=== PATIENT | male | born 1935 | race Hispanic/Latino ===

== ENCOUNTER 2016-12-22 08:07 | Day surgery (SDC) | payer MEDICARE, BC ==
[2016-12-15 11:56] VITALS: BMI 23.6
[2016-12-22] MEDS ORDERED: Propofol 10 mg/ml Inj (20 ML) ONE (11:11)
[2016-12-22] MEDS ORDERED: Sodium Chloride 0.9% 1,000 ML IV SCH (11:30)
[2016-12-22 12:35] VITALS: BP 143/59; PULSE 48; RESP 16; TEMP 97.5; O2SAT 98
== END 2016-12-22 12:56 | disposition home or self-care (01) ==
LOC: ENDO 08:07
PROVIDERS: ATTEND Internal Medicine Gastroenterology
DX: K90.0 Celiac disease (principal); K26.9 Duodenal ulcer, unspecified as acute or chronic, without hemorrhage or perforation; K21.0 Gastro-esophageal reflux disease with esophagitis; K29.50 Unspecified chronic gastritis without bleeding; K44.9 Diaphragmatic hernia without obstruction or gangrene; R63.4 Abnormal weight loss; Z68.23 Body mass index [BMI] 23.0-23.9, adult

== ENCOUNTER 2017-04-13 08:11 | Day surgery (SDC) | payer MEDICARE, BC ==
[2016-12-15 11:56] VITALS: BMI 23.6
[2017-04-13] MEDS ORDERED: Propofol 10 mg/ml Inj (20 ML) ONE ×2 (10:19→10:40)
[2017-04-13] MEDS ORDERED: Sodium Chloride 0.9% 1,000 ML IV SCH (11:00)
[2017-04-13 12:31] VITALS: BP 166/70; PULSE 43; RESP 16; TEMP 97.7; O2SAT 98
== END 2017-04-13 12:25 | disposition home or self-care (01) ==
LOC: ENDO 08:11
PROVIDERS: ATTEND Internal Medicine Gastroenterology
DX: K57.30 Diverticulosis of large intestine without perforation or abscess without bleeding (principal); K64.8 Other hemorrhoids
CPT/HCPCS: 45380; 88305; 88342; J2704; J7040 ×2

== ENCOUNTER 2017-06-05 09:35 | Day surgery (SDC) | payer MEDICARE, BC ==
[2016-12-15 11:56] VITALS: BMI 23.6
[2017-06-05] MEDS ORDERED: Propofol 10 mg/ml Inj (20 ML) ONE (10:55)
[2017-06-05] MEDS ORDERED: Sodium Chloride 0.9% 1,000 ML IV SCH (11:00)
[2017-06-05 13:49] VITALS: BP 144/61; PULSE 40; RESP 15; TEMP 98; O2SAT 97
== END 2017-06-05 14:05 | disposition home or self-care (01) ==
LOC: ENDO 09:35
PROVIDERS: ATTEND Internal Medicine Gastroenterology
DX: K31.7 Polyp of stomach and duodenum (principal); K22.2 Esophageal obstruction; K22.70 Barrett's esophagus without dysplasia; K29.50 Unspecified chronic gastritis without bleeding; K90.0 Celiac disease; I10 Essential (primary) hypertension; R13.10 Dysphagia, unspecified; Z86.73 Personal history of transient ischemic attack (TIA), and cerebral infarction without residual deficits
CPT/HCPCS: 43239; 88305; 88312; 88342; J2001; J2704; J7040 ×2

== ENCOUNTER 2018-01-26 09:16 | Emergency (ER) | payer MEDICARE, BC ==
[2018-01-26 09:17] VITALS: BMI 23.6
[2018-01-26 09:29] VITALS: RESP 18
--- NOTE | 2018-01-26 09:58 | ED PDOC ---
Arrival/HPI - General Historian: Patient - History of Present Illness Narrative History of Present Illness (Text): 01/26/18 09:55 Patient is a 82 year old male with past medical history of Hypertension, CAD s/p stent, hyperlipidemia who presented to the emergency department for elevated blood pressure. Patient states that he just recently got a BP machine at home. He took his medication this morning and took his blood pressure approximately 10 minutes later. His SBP reading was 209 at that time. He called his PMD who recommended coming to the ED for evaluation. Patient offers no other complaints at this time. He denies headaches, dizziness, cp, palpitations, sob, abdominal pain, urinary symptoms. Time/Duration: Prior to Arrival Symptom Onset: Sudden Symptom Course: Unchanged <Ysesi Parks - Last Filed: 01/26/18 10:22> <Arik Galaviz - Last Filed: 01/26/18 11:15> - General Chief Complaint: High Blood Pressure Time Seen by Provider: 01/26/18 09:40 Past Medical History - Provider Review Nursing Documentation Reviewed: Yes - Infectious Disease Hx of Infectious Diseases: None - Tetanus Immunization Tetanus Immunization: Unknown - Cardiac Hx Hypertension: Yes Hx Pacemaker: No - Neurological Hx Paralysis: No - Hematological/Oncological Hx Blood Transfusions: No - Musculoskeletal/Rheumatological Hx Musculoskeletal Disorders: No - Psychiatric Hx Emotional Abuse: No Hx Physical Abuse: No Hx Substance Use: No - Surgical History Hx Cardiac Catheterization: Yes (with stents) - Anesthesia Hx Anesthesia: Yes Hx Anesthesia Reactions: No Hx Malignant Hyperthermia: No - Suicidal Assessment Feels Threatened In Home Enviroment: No <Yessi Parks - Last Filed: 01/26/18 10:22> Family/Social History - Physician Review Nursing Documentation Reviewed: Yes Smoking Status: Never Smoked Hx Alcohol Use: Yes (BEER OCCASIONALLY) Hx Substance Use: No <Yessi Parks - Last Filed: 01/26/18 10:22> Family/Social History: No Known Family HX <Arik Galaviz - Last Filed: 01/26/18 11:15> Allergies/Home Meds <Yessi Parks - Last Filed: 01/26/18 10:22> <Arik Galaviz - Last Filed: 01/26/18 11:15> Allergies/Adverse Reactions: Allergies No Known Allergies Allergy (Verified 03/20/16 11:09) Home Medications: Home Meds Medication Instructions Recorded Confirmed RX: Metoprolol Succinate 25 mg PO DAILY 08/23/11 01/26/18 Ferrous Gluconate [Fergon] 270 mg PO DAILY 12/15/16 01/26/18 Folic Acid 1 mg PO BID 12/15/16 01/26/18 Tamsulosin [Flomax] 0.4 mg PO DAILY 12/15/16 01/26/18 RX: Omeprazole 20 mg PO DAILY 12/22/16 01/26/18 Aspirin [Ecotrin] 81 mg PO DAILY 03/07/17 01/26/18 Multivit-Minerals/FA/Lycopene [One 1 tab PO DAILY 03/07/17 01/26/18 Daily For Men Tablet] RX: Atorvastatin [Lipitor] 20 mg PO QOTHERDAY 03/07/17 01/26/18 RX: Docusate Sodium [Stool 100 mg PO DAILY 03/07/17 01/26/18 Softener] RX: Losartan Potassium [Cozaar] 100 mg PO DAILY 03/07/17 01/26/18 Review of Systems - Physician Review All systems were reviewed & negative as marked: Yes - Review of Systems Constitutional: Normal. absent: Fatigue Eyes: Normal. absent: Vision Changes Respiratory: Normal. absent: SOB, Cough Cardiovascular: Normal. absent: Chest Pain, Palpitations, Edema Gastrointestinal: Normal. absent: Abdominal Pain, Constipation, Diarrhea, Nausea, Vomiting Genitourinary Male: Normal. absent: Dysuria, Frequency, Hematuria Musculoskeletal: Normal. absent: Back Pain, Neck Pain Skin: Normal Neurological: Normal. absent: Headache, Dizziness, Focal Weakness <Yessi Parks - Last Filed: 01/26/18 10:22> Physical Exam Vital Signs Reviewed: Yes Vital Signs Temp Pulse Resp BP Pulse Ox 01/26/18 09:33 98.4 F 56 L 18 162/80 H 98 01/26/18 09:17 98.4 F 56 L 18 162/80 H 98 Temperature: Afebrile Blood Pressure: Hypertensive Pulse: Bradycardic Respiratory Rate: Normal Appearance: Positive for: Well-Appearing, Non-Toxic, Comfortable Pain Distress: None Mental Status: Positive for: Alert and Oriented X 3 - Systems Exam Head: Present: Atraumatic, Normocephalic Pupils: Present: PERRL Extroacular Muscles: Present: EOMI Conjunctiva: Present: Normal Mouth: Present: Moist Mucous Membranes Nose (Internal): Present: Normal Inspection Neck: Present: Normal Range of Motion Respiratory/Chest: Present: Clear to Auscultation, Good Air Exchange. No: Respiratory Distress, Accessory Muscle Use Cardiovascular: Present: Regular Rate and Rhythm, Murmurs, Normal S1, S2 Abdomen: Present: Distention (mildly distended), Normal Bowel Sounds. No: Tenderness, Peritoneal Signs, Rebound, Guarding Back: Present: Normal Inspection. No: CVA Tenderness Upper Extremity: Present: Normal Inspection Lower Extremity: Present: Normal Inspection Neurological: Present: CN II-XII Intact Skin: Present: Warm, Dry, Normal Color Psychiatric: Present: Alert, Oriented x 3 <Yessi Parks - Last Filed: 01/26/18 10:22> Vital Signs Temp Pulse Resp BP Pulse Ox 01/26/18 10:29 98.2 F 52 L 18 174/84 H 96 01/26/18 09:33 98.4 F 56 L 18 162/80 H 98 01/26/18 09:17 98.4 F 56 L 18 162/80 H 98 <Arik Galaviz - Last Filed: 01/26/18 11:15> Medical Decision Making ED Course and Treatment: 01/26/18 10:01 Patient seen and examined at bedside. Patient is asymptomatic, offering no complaints at this time. 01/26/18 10:28 Patient to be discharged home. Instructed to follow up with PMD within 2-3 days. <Yessi Parks - Last Filed: 01/26/18 10:22> ED Course and Treatment: 01/26/18 10:05 Seen and examined with resident. 82 year old male presents with elevated blood pressure, spontaneously improving. On exam, no distress. <Arik Galaviz - Last Filed: 01/26/18 11:15> - PA / HAM BONER / Resident Statement MD/DO has reviewed & agrees with the documentation as recorded. MD/DO has examined the patient and agrees with the treatment plan. - Scribe Statement The provider has reviewed the documentation as recorded by the Charleneibheidi Mason All medical record entries made by the Scribe were at my direction and personally dictated by me. I have reviewed the chart and agree that the record accurately reflects my personal performance of the history, physical exam, medical decision making, and the department course for this patient. I have also personally directed, reviewed, and agree with the discharge instructions and disposition. <Arik Galaviz - Last Filed: 01/26/18 11:15> Disposition/Present on Arrival - Present on Arrival Any Indicators Present on Arrival: No History of DVT/PE: No History of Uncontrolled Diabetes: No Urinary Catheter: No History of Decub. Ulcer: No History Surgical Site Infection Following: CABG - Mediastinitis, None - Disposition Have Diagnosis and Disposition been Completed?: Yes Disposition Time: 10:19 Patient Plan: Discharge <CharlyYessi - Last Filed: 01/26/18 10:22> <Arik Galaviz - Last Filed: 01/26/18 11:15> - Disposition Diagnosis: Hypertension Disposition: HOME/ ROUTINE Condition: GOOD Discharge Instructions (ExitCare): High Blood Pressure in Adults, High Blood Pr essure (DC), Low Salt Diet, High Blood Pressure Emergencies Additional Instructions: - Please follow up with PMD within 2-3 days for BP check and follow up - If any worsening of symptoms, return to the emergency department Referrals: Kirill Joshua MD [Family Provider] - Follow up with primary Forms: [employer] (Icelandic)
[2018-01-26 10:33] VITALS: BP 174/84; PULSE 52; O2SAT 96
[2018-01-26 10:34] VITALS: TEMP 98.2
== END 2018-01-26 10:34 | disposition home or self-care (01) ==
LOC: ED 09:16
DX: I10 Essential (primary) hypertension (principal); I25.10 Atherosclerotic heart disease of native coronary artery without angina pectoris; Z95.5 Presence of coronary angioplasty implant and graft

== ENCOUNTER 2018-04-15 04:32 | Inpatient (IN) | payer MEDICARE, BC ==
--- NOTE | 2018-04-15 04:58 | ED PDOC ---
Arrival/HPI - General Chief Complaint: Weakness/Neurological Deficit Time Seen by Provider: 04/15/18 04:51 Historian: Patient, Spouse - History of Present Illness Narrative History of Present Illness (Text): 04/15/18 04:57 Navdeep Sadler is an 82 year old male, whose past medical history includes CAD with cardiac stents, hypertension, hyperlipidemia, and Celiac's disease, who presents to the Emergency department accompanied by complaining of paresthesias. Patient states while driving at 14:30 yesterday he started experiencing paresthesias to his right arm and right leg. Patient denies any numbness, headache, dizziness, vision changes, chest pain, shortness of breath, nausea, vomiting, back pain, neck pain, or any other complaints. Symptom Onset: Gradual Symptom Course: Unchanged Activities at Onset: Light Context: Home Past Medical History - Provider Review Nursing Documentation Reviewed: Yes - Infectious Disease Hx of Infectious Diseases: None - Tetanus Immunization Tetanus Immunization: Unknown - Cardiac Hx Hypertension: Yes Hx Pacemaker: No - Neurological Hx Paralysis: No - Hematological/Oncological Hx Blood Transfusions: No - Musculoskeletal/Rheumatological Hx Musculoskeletal Disorders: No - Psychiatric Hx Emotional Abuse: No Hx Physical Abuse: No Hx Substance Use: No - Surgical History Hx Cardiac Catheterization: Yes (with stents) - Anesthesia Hx Anesthesia: Yes Hx Anesthesia Reactions: No Hx Malignant Hyperthermia: No - Suicidal Assessment Feels Threatened In Home Enviroment: No Family/Social History - Physician Review Nursing Documentation Reviewed: Yes Family/Social History: Unknown Family HX Smoking Status: Never Smoked Hx Alcohol Use: Yes (BEER OCCASIONALLY) Hx Substance Use: No Allergies/Home Meds Allergies/Adverse Reactions: Allergies No Known Allergies Allergy (Verified 04/15/18 04:39) Home Medications: Home Meds Medication Instructions Recorded Confirmed Metoprolol Succinate 50 mg PO DAILY 08/23/11 04/15/18 Ferrous Gluconate [Fergon] 270 mg PO DAILY 12/15/16 04/15/18 Folic Acid 1 mg PO BID 12/15/16 04/15/18 Tamsulosin [Flomax] 0.4 mg PO DAILY 12/15/16 04/15/18 Omeprazole 20 mg PO DAILY 12/22/16 04/15/18 Aspirin [Ecotrin] 81 mg PO DAILY 03/07/17 04/15/18 Atorvastatin [Lipitor] 20 mg PO QOTHERDAY 03/07/17 04/15/18 Docusate Sodium [Stool Softener] 100 mg PO DAILY 03/07/17 04/15/18 Losartan Potassium [Cozaar] 100 mg PO DAILY 03/07/17 04/15/18 Multivit-Minerals/FA/Lycopene [One 1 tab PO DAILY 03/07/17 04/15/18 Daily For Men Tablet] amLODIPine [Norvasc] 10 mg PO DAILY 04/15/18 04/15/18 Review of Systems - Physician Review All systems were reviewed & negative as marked: Yes - Review of Systems Constitutional: Normal. absent: Fevers Eyes: Normal ENT: Normal Respiratory: Normal. absent: SOB, Cough Cardiovascular: Normal. absent: Chest Pain Gastrointestinal: Normal. absent: Abdominal Pain, Diarrhea, Nausea, Vomiting Genitourinary Male: Normal Musculoskeletal: Normal Skin: Normal Neurological: Normal Endocrine: Normal Hemo/Lymphatic: Normal Psychiatric: Normal Physical Exam Vital Signs Reviewed: Yes Vital Signs Temp Pulse Resp BP Pulse Ox 04/15/18 04:50 97.6 F 04/15/18 04:47 53 L 18 145/77 97 Temperature: Afebrile Blood Pressure: Normal Pulse: Regular Respiratory Rate: Normal Appearance: Positive for: Well-Appearing, Non-Toxic, Comfortable Pain Distress: None Mental Status: Positive for: Alert and Oriented X 3 Finger Stick Blood Glucose: 142 - Systems Exam Head: Present: Atraumatic, Normocephalic Pupils: Present: PERRL Extroacular Muscles: Present: EOMI Conjunctiva: Present: Normal Mouth: Present: Moist Mucous Membranes Neck: Present: Normal Range of Motion Respiratory/Chest: Present: Clear to Auscultation, Good Air Exchange. No: Respiratory Distress, Accessory Muscle Use Cardiovascular: Present: Regular Rate and Rhythm, Normal S1, S2. No: Murmurs Abdomen: No: Tenderness, Distention, Peritoneal Signs Back: Present: Normal Inspection Upper Extremity: Present: Normal Inspection, Normal ROM, NORMAL PULSES, Neurovascularly Intact, Capillary Refill < 2s. No: Cyanosis, Edema, Tenderness, Swelling, Erythema, Temperature Abnormalties, Deformity Lower Extremity: Present: Normal Inspection. No: Edema Neurological: Present: GCS=15, CN II-XII Intact, Speech Normal, Motor Func Grossly Intact, Normal Sensory Function, Normal Cerebellar Funct, Memory Normal Skin: Present: Warm, Dry, Normal Color. No: Rashes Psychiatric: Present: Alert, Oriented x 3, Normal Insight, Normal Concentration Medical Decision Making ED Course and Treatment: 04/15/18 04:57 Impression: 82 year old male complaining of right arm and right leg paresthesias since 14:30 yesterday. Plan: -- CT Head w/o contrast -- EKG -- Chest X-ray -- Labs, lipid panel, troponin -- Reassess and disposition Progress Notes: Reviewed EKG, sinus bradycardia at 52 bpm. Occasional PAC. Septal infarct. No acute changes. 04/15/18 06:00 Reviewed Chest X-ray, shows no acute processes. 04/15/18 06:32 Case was discussed with .Accepts to his service/ on consult. - EKG Interpretation Interpreted by ED Physician: Yes Type: 12 lead EKG NIHSS Scale (Olden) Time Performed: 05:00 - How Severe is the Stoke Baseline Level of Consciousness: 0=Alert LOC to Questions: 0=Both comments correct LOC to commands: 0=Obeys both correctly Best Gaze: 0=Normal Visual: 0=No visual loss Facial: 0=Normal Motor Arm - Left: 0=No drift Motor Arm - Right: 0=No drift Motor Leg - Left: 0=No drift Motor Leg - Right: 0=No drift Limb Ataxia: 0=Absent Sensory: 0=Normal Best Language: 0=No aphasia Dysarthia: 0=Normal articulation Extinction & Inattention (Neglect): 0=Normal, no object Score: 0 Risk Level: No Stroke Risk - Scribe Statement The provider has reviewed the documentation as recorded by the Sandy Gibson Provider Scribe Attestation: All medical record entries made by the Charleneibheidi were at my direction and personally dictated by me. I have reviewed the chart and agree that the record accurately reflects my personal performance of the history, physical exam, medical decision making, and the department course for this patient. I have also personally directed, reviewed, and agree with the discharge instructions and disposition. Disposition/Present on Arrival - Present on Arrival Any Indicators Present on Arrival: No History of DVT/PE: No History of Uncontrolled Diabetes: No Urinary Catheter: No History of Decub. Ulcer: No History Surgical Site Infection Following: CABG - Mediastinitis, None - Disposition Have Diagnosis and Disposition been Completed?: Yes Diagnosis: Paresthesias/numbness Disposition: HOSPITALIZED Disposition Time: 06:32 Patient Plan: Observation Condition: STABLE Forms: [employer] (Mongolian)
[2018-04-15 05:33] LABS: BASO # 0.01 K/mm3 (0.0-2.0); BASO % 0.1 % (0.0-3.0); EOS # 0.1 (0.0-0.7); EOS % 0.9 % (1.5-5.0); HEMOGLOBIN 15.2 g/dL (14.0-18.0); LYMPH # 2.7 (1.2-3.4); MEAN CELL VOLUME 87.9 fl (80.0-105.0); MEAN CORPUSCULAR HEMOGLOBIN 28.8 pg (25.0-35.0); MEAN CORPUSCULAR HGB CONC 32.8 g/dl (31.0-37.0); MEAN PLATELET VOLUME 10.4 fl (7.0-11.0); MONO # 0.7 (0.1-0.6); MONO % 7.7 % (1.0-6.0); RBC 5.28 10^6/uL (3.5-6.1); RED CELL DISTRIBUTION WIDTH 14.2 % (11.5-14.5); WHITE BLOOD COUNT 8.6 10^3/uL (4.5-11.0)
[2018-04-15 05:51] LABS: ALB/GLOB RATIO 1.4 (1.1-1.8); ALBUMIN 3.8 g/dL (3.0-4.8); ALT/SGPT 17 U/L (7-56); AST/SGOT 31 U/L (17-59); BLOOD UREA NITROGEN 26 mg/dL (7-21); CALCIUM 8.9 mg/dL (8.4-10.5); GFR NON-AFRICAN AMERICAN 53; HDL CHOLESTEROL 32 mg/dL (29-60); INR 0.99; PARTIAL THROMBOPLASTIN TIME 29.6 Seconds (26.9-38.3); PROTHROMBIN TIME 11.2 SECONDS (9.4-12.5)
[2018-04-15 06:02] LABS: LDL CHOLESTEROL 74 mg/dL (0-129); TROPONIN I < 0.01 ng/mL
--- NOTE | 2018-04-15 09:14 | CT ---
Date of service: 04/15/2018 PROCEDURE: CT HEAD WITHOUT CONTRAST. HISTORY: numbness COMPARISON: None available. TECHNIQUE: Axial computed tomography images were obtained through the head/brain without intravenous contrast. Radiation dose: Total exam DLP = 867.26 mGy-cm. This CT exam was performed using one or more of the following dose reduction techniques: Automated exposure control, adjustment of the mA and/or kV according to patient size, and/or use of iterative reconstruction technique. FINDINGS: HEMORRHAGE: No intracranial hemorrhage. BRAIN: No mass effect or edema. Chronic microvascular changes are seen. There is moderate atrophy. VENTRICLES: Unremarkable. No hydrocephalus. CALVARIUM: Unremarkable. PARANASAL SINUSES: Unremarkable as visualized. No significant inflammatory changes. MASTOID AIR CELLS: Unremarkable as visualized. No inflammatory changes. OTHER FINDINGS: The report concurs with the preliminary [facility] report IMPRESSION: No acute intracranial findings
[2018-04-15] MEDS: Metoprolol Succinate 50 mg XL Tab PO SCH (10:04)
[2018-04-15] MEDS: Pantoprazole 40 mg EC Tab PO SCH (10:51)
--- NOTE | 2018-04-15 11:49 | RAD ---
Date of service: 04/15/2018 HISTORY: medical clearance COMPARISON: 12/04/2013. FINDINGS: LUNGS: No active pulmonary disease. PLEURA: No significant pleural effusion identified, no pneumothorax apparent. CARDIOVASCULAR: Atherosclerotic calcifications identified primarily aortic arch. No radiographic findings to suggest acute or significant cardiovascular disease. OSSEOUS STRUCTURES: No significant abnormalities. VISUALIZED UPPER ABDOMEN: Normal. OTHER FINDINGS: None. IMPRESSION: No active disease. No significant interval change compared to the prior examination(s).
--- NOTE | 2018-04-15 14:48 | CP.PCM.HP ---
<Luis Morelos - Last Filed: 04/15/18 14:52> History of Present Illness - History of Present Illness History of Present Illness: H&P for Dr. Klein: 82-year-old male with past medical history of CVA (L sided residual facial droop) , CAD with stents, hypertension, hyperlipidemia, celiac disease presents complaining of weakness and paresthesias of his right side. Patient states that she was riding a treadmill yesterday afternoon and was doing fine. Patient subsequently went driving towards the park when he started feeling right-sided symptoms including R sided paresthesias and weakness. Patient denies taking anything for this. When his symptoms did not go away patient decided to come to the ED afraid that he may have a stroke. Patient denies any falls or hitting his head. Patient denies any headache, dizziness, visual changes, shortness of breath, chest pain, palpitations, abdominal pain, nausea, vomiting, or urinary symptoms. 12 point ROS performed and negative other than stated above. PMH: As above PSH: Denies Allergies: No known allergies SH: Denies any drinking, smoking, or drugs FH: Both his parents of cancer, father with lung cancer, mother with ovarian cancer Present on Admission - Present on Admission Any Indicators Present on Admission: No Review of Systems - Review of Systems All systems: reviewed and no additional remarkable complaints except Past Patient History - Infectious Disease Hx of Infectious Diseases: None - Tetanus Immunizations Tetanus Immunization: Unknown - Past Social History Smoking Status: Never Smoked - CARDIAC Hx Hypertension: Yes Hx Pacemaker: No - NEUROLOGICAL Hx Paralysis: No - HEMATOLOGICAL/ONCOLOGICAL Hx Blood Transfusions: No - MUSCULOSKELETAL/RHEUMATOLOGICAL Hx Musculoskeletal Disorders: No - PSYCHIATRIC Hx Emotional Abuse: No Hx Physical Abuse: No Hx Substance Use: No - SURGICAL HISTORY Hx Cardiac Catheterization: Yes (with stents) - ANESTHESIA Hx Anesthesia: Yes Hx Anesthesia Reactions: No Hx Malignant Hyperthermia: No Meds Allergies/Adverse Reactions: Allergies Allergy/AdvReac Type Severity Reaction Status Date / Time No Known Allergies Allergy Verified 04/15/18 04:39 Physical Exam - Constitutional Appears: No Acute Distress - Head Exam Head Exam: ATRAUMATIC, NORMOCEPHALIC - Eye Exam Eye Exam: EOMI - ENT Exam ENT Exam: Mucous Membranes Moist - Respiratory Exam Respiratory Exam: Clear to Auscultation Bilateral. absent: Rales, Wheezes - Cardiovascular Exam Cardiovascular Exam: REGULAR RHYTHM, +S1, +S2 - GI/Abdominal Exam GI & Abdominal Exam: Normal Bowel Sounds, Soft. absent: Distended - Extremities Exam Extremities exam: Negative for: calf tenderness, pedal edema - Neurological Exam Neurological exam: Alert, CN II-XII Intact, Oriented x3 Additional comments: L sided residual facial droop from prior stroke. Motor strength R upper and lower ext 4/5 L upper and lower ext 5/5 Sensation intact in all extremities - Psychiatric Exam Psychiatric exam: Normal Mood - Skin Skin Exam: Dry, Warm Results - Vital Signs Recent Vital Signs: Last Vital Signs Temp 97.7 F 04/15/18 07:29 Pulse 50 L 04/15/18 12:58 Resp 16 04/15/18 12:58 BP 137/57 L 04/15/18 12:58 Pulse Ox 97 04/15/18 12:58 - Labs Result Diagrams: 04/15/18 05:08 04/15/18 05:08 Labs: Laboratory Results - last 24 hr 04/15/18 04/15/18 04/15/18 05:08 05:08 05:08 WBC 8.6 RBC 5.28 Hgb 15.2 Hct 46.4 MCV 87.9 MCH 28.8 MCHC 32.8 RDW 14.2 Plt Count 199 MPV 10.4 Neut % (Auto) 59.3 Lymph % (Auto) 32.0 Harrison % (Auto) 7.7 H Eos % (Auto) 0.9 L Baso % (Auto) 0.1 Lymph # (Auto) 2.7 Harrison # (Auto) 0.7 H Eos # (Auto) 0.1 Baso # (Auto) 0.01 Absolute Neuts (auto) 5.07 PT 11.2 INR 0.99 APTT 29.6 Sodium 136 Potassium 4.7 Chloride 105 Carbon Dioxide 24 Anion Gap 12 BUN 26 H Creatinine 1.3 Est GFR ( Amer) > 60 Est GFR (Non-Af Amer) 53 Random Glucose 143 H Hemoglobin A1c Calcium 8.9 Total Bilirubin 0.6 AST 31 ALT 17 Alkaline Phosphatase 87 Troponin I < 0.01 Total Protein 6.5 Albumin 3.8 Globulin 2.7 Albumin/Globulin Ratio 1.4 Triglycerides 124 Cholesterol 126 L LDL Cholesterol Direct 74 HDL Cholesterol 32 04/15/18 05:08 WBC RBC Hgb Hct MCV MCH MCHC RDW Plt Count MPV Neut % (Auto) Lymph % (Auto) Harrison % (Auto) Eos % (Auto) Baso % (Auto) Lymph # (Auto) Harrison # (Auto) Eos # (Auto) Baso # (Auto) Absolute Neuts (auto) PT INR APTT Sodium Potassium Chloride Carbon Dioxide Anion Gap BUN Creatinine Est GFR ( Amer) Est GFR (Non-Af Amer) Random Glucose Hemoglobin A1c 6.2 Calcium Total Bilirubin AST ALT Alkaline Phosphatase Troponin I Total Protein Albumin Globulin Albumin/Globulin Ratio Triglycerides Cholesterol LDL Cholesterol Direct HDL Cholesterol Assessment & Plan - Assessment and Plan (Free Text) Assessment: 1. R sided weakness and parathesia r/o CVA vs TIA 2. CAD with stents 3 Hypertension 4. Hyperlipidemia 5. Celiac disease Patient is still complaining of right-sided symptoms. Continue with aspirin 81mg for history of CAD, and CVA. Follow-up with echocardiogram and carotid artery ultrasound ordered. Follow-up with neurology consult and recommendations. Continue with Lipitor for his hyperlipidemia. Continue with metoprolol and losartan for his hypertension. Patient had a CT of the head which was negative. Patient had a chest x-ray which was negative as well. Continue with physical therapy. Continue with heart healthy and gluten-free diet. Continue with Protonix. Continue to monitor for any changes. Case and plan was reviewed and discussed with Dr. Klein. <Lennox Klein - Last Filed: 04/15/18 16:56> Results - Vital Signs Recent Vital Signs: Last Vital Signs Temp 97.7 F 04/15/18 07:29 Pulse 50 L 04/15/18 12:58 Resp 16 04/15/18 12:58 BP 137/57 L 04/15/18 12:58 Pulse Ox 97 04/15/18 12:58 - Labs Result Diagrams: 04/15/18 05:08 04/15/18 05:08 Labs: Laboratory Results - last 24 hr 04/15/18 04/15/18 04/15/18 05:08 05:08 05:08 WBC 8.6 RBC 5.28 Hgb 15.2 Hct 46.4 MCV 87.9 MCH 28.8 MCHC 32.8 RDW 14.2 Plt Count 199 MPV 10.4 Neut % (Auto) 59.3 Lymph % (Auto) 32.0 Harrison % (Auto) 7.7 H Eos % (Auto) 0.9 L Baso % (Auto) 0.1 Lymph # (Auto) 2.7 Harrison # (Auto) 0.7 H Eos # (Auto) 0.1 Baso # (Auto) 0.01 Absolute Neuts (auto) 5.07 PT 11.2 INR 0.99 APTT 29.6 Sodium 136 Potassium 4.7 Chloride 105 Carbon Dioxide 24 Anion Gap 12 BUN 26 H Creatinine 1.3 Est GFR ( Amer) > 60 Est GFR (Non-Af Amer) 53 Random Glucose 143 H Hemoglobin A1c Calcium 8.9 Total Bilirubin 0.6 AST 31 ALT 17 Alkaline Phosphatase 87 Troponin I < 0.01 Total Protein 6.5 Albumin 3.8 Globulin 2.7 Albumin/Globulin Ratio 1.4 Triglycerides 124 Cholesterol 126 L LDL Cholesterol Direct 74 HDL Cholesterol 32 04/15/18 05:08 WBC RBC Hgb Hct MCV MCH MCHC RDW Plt Count MPV Neut % (Auto) Lymph % (Auto) Harrison % (Auto) Eos % (Auto) Baso % (Auto) Lymph # (Auto) Harrison # (Auto) Eos # (Auto) Baso # (Auto) Absolute Neuts (auto) PT INR APTT Sodium Potassium Chloride Carbon Dioxide Anion Gap BUN Creatinine Est GFR ( Amer) Est GFR (Non-Af Amer) Random Glucose Hemoglobin A1c 6.2 Calcium Total Bilirubin AST ALT Alkaline Phosphatase Troponin I Total Protein Albumin Globulin Albumin/Globulin Ratio Triglycerides Cholesterol LDL Cholesterol Direct HDL Cholesterol Assessment & Plan - Assessment and Plan (Free Text) Assessment: Pt seen and examined by me. I have reviewed the note of the medical physics teacher and I agree with it. I have discussed the assessment and plan with the resident. I have reviewed the medications and the last labs. Pt with R sided tingling with no weakness. He will need to have an evaluation for a TIA. I dont think he has a TIA but may have a neuropathy. He denies back pain. He is on ASA for his CAD. He will need Echo and Cartotid US for evaluation. CT of the head was negative. He will continue with Losartan for his HTN. He will be on Lipitor for his dysl ipidemia. I spoke to his and updated her on the plan of care. Will need gluten free diet. Will get Neuro evaluation.
--- NOTE | 2018-04-15 17:13 | CARD ---
APPROVED REPORT Date of service: 04/15/2018 EKG Measurement Heart [id number] NM [id number] <Conclusion> Sinus bradycardia with premature atrial complexes with aberrant conduction Abnormal ECG
[2018-04-15 17:18] VITALS: BMI 26.2
[2018-04-15] MEDS ORDERED: Influenza Vaccine 60 mcg/0.5 mL SYR (4YR UP) IM ONE (17:18)
[2018-04-15] MEDS ORDERED: Pneumococcal 23-Valent Vaccine IM ONE (17:18)
--- NOTE | 2018-04-15 18:27 | US ---
PROCEDURE: Bilateral carotid artery duplex ultrasound HISTORY: Carotid stenosis TIA PHYSICIAN(S): Bin Adams MD. TECHNIQUE: Duplex sonography and color-flow Doppler were used to evaluate the carotid bifurcations and limited segments of the vertebral arteries bilaterally. FINDINGS: There is mild smooth heterogeneous plaque noted at the carotid bifurcations bilaterally. The peak systolic velocity in the proximal right internal carotid artery is 82 cm/sec. This corresponds to a 20 to 39% proximal right ICA stenosis. Normal systolic velocities are noted in the proximal right external carotid artery. There is antegrade flow in the right vertebral artery. The peak systolic velocity in the proximal left internal carotid artery is 78 cm/sec. This corresponds to a 20 to 39% proximal left ICA stenosis. Normal systolic velocities are noted in the proximal left external carotid artery. There is antegrade flow in the left vertebral artery. IMPRESSION: 1. Bilateral 20-39% proximal ICA stenoses. 2. Antegrade flow in both vertebral arteries.
[2018-04-15 20:09] VITALS: O2SAT 99
--- NOTE | 2018-04-15 20:44 | CON ---
DATE: 04/15/2018 HISTORY OF PRESENT ILLNESS: This is an 82-year-old male with past medical of coronary artery disease, cardiac stents, hypertension, hyperlipidemia, and celiac disease. He came to the hospital with his with complaint of numbness of right upper extremity and right lower extremity. No neck pain. No back pain. Denies any dizziness. No visual changes. PAST MEDICAL HISTORY: As above. SOCIAL HISTORY: Does not smoke. Does not drink. ALLERGIES: NO KNOWN DRUG ALLERGIES. HOME MEDICATIONS: Metoprolol, Flomax, omeprazole, Ecotrin, Lipitor, Cozaar, and Norvasc. REVIEW OF SYSTEMS: A 10-point review of systems was negative. PHYSICAL EXAMINATION: VITAL SIGNS: Blood pressure 145/77. HEENT: Normocephalic and atraumatic. NECK: Supple. NEUROLOGIC: Awake, alert and oriented x3. No aphasia. Cranial nerves II through XII were tested. Pupils reactive. EOM intact. No facial asymmetry. Tongue midline. Motor examination; moves all the extremities equally. Tone normal. Deep tendon reflexes 1+. Plantars are downgoing. Sensory appears intact. Cerebellar gait deferred. IMPRESSION AND PLAN: Right-sided paraesthesia. CAT scan of the head was negative. Workup in progress, we will find out and continue present management and continue aspirin. Alex Ortega MD
[2018-04-16 09:12] LABS: ALB/GLOB RATIO 1.4 (1.1-1.8); ALBUMIN 3.9 g/dL (3.0-4.8); ALT/SGPT 20 U/L (7-56); AST/SGOT 34 U/L (17-59); BLOOD UREA NITROGEN 23 mg/dL (7-21); GFR NON-AFRICAN AMERICAN 53
[2018-04-16 09:19] LABS: BASO # 0.02 K/mm3 (0.0-2.0); BASO % 0.2 % (0.0-3.0); EOS # 0.1 (0.0-0.7); EOS % 0.6 % (1.5-5.0); HEMOGLOBIN 15.5 g/dL (14.0-18.0); LYMPH # 3.4 (1.2-3.4); LYMPH % 30.9 % (22.0-35.0); MEAN CELL VOLUME 87.8 fl (80.0-105.0); MEAN CORPUSCULAR HEMOGLOBIN 28.2 pg (25.0-35.0); MEAN CORPUSCULAR HGB CONC 32.1 g/dl (31.0-37.0); MEAN PLATELET VOLUME 10.4 fl (7.0-11.0); MONO # 0.8 (0.1-0.6); RBC 5.5 10^6/uL (3.5-6.1); RED CELL DISTRIBUTION WIDTH 14.3 % (11.5-14.5); WHITE BLOOD COUNT 11.1 10^3/uL (4.5-11.0)
[2018-04-16] MEDS: Pantoprazole 40 mg EC Tab PO SCH (09:55)
[2018-04-16] MEDS: Metoprolol Succinate 50 mg XL Tab PO SCH (09:55)
--- NOTE | 2018-04-16 11:08 | CP.PCM.PN ---
<Luis Morelos - Last Filed: 04/16/18 11:08> Subjective - Date & Time of Evaluation Date of Evaluation: 04/16/18 Time of Evaluation: 07:10 - Subjective Subjective: Medicine progress note for Dr. Klein: Patient seen and examined at bedside. No acute events overnight. Patient still complaining of right-sided weakness along with paresthesia of both his upper and lower extremities. No other complaints. 12 point ROS performed and negative other than stated above. Objective - Vital Signs/Intake and Output Vital Signs (last 24 hours): Temp Pulse Resp BP Pulse Ox 97.6 F 77 19 160/70 H 99 04/16/18 06:00 04/16/18 09:55 04/16/18 06:00 04/16/18 09:55 04/15/18 16:00 Intake and Output: 04/16/18 04/16/18 06:59 18:59 Intake Total 840 Output Total 650 Balance 190 - Medications Medications: Current Medications Alprazolam (Xanax) 0.25 mg PO BID PRN PRN Reason: Anxiety Stop: 04/23/18 10:50 Amlodipine Besylate (Norvasc) 10 mg PO DAILY [facility] Last Admin: 04/16/18 09:55 Dose: 10 mg Aspirin (Ecotrin) 81 mg PO DAILY [facility] Last Admin: 04/16/18 09:55 Dose: 81 mg Atorvastatin Calcium (Lipitor) 20 mg PO QOTHERDAY [facility] Last Admin: 04/15/18 10:04 Dose: Not Given Docusate Sodium (Colace) 100 mg PO DAILY [facility] Last Admin: 04/16/18 09:55 Dose: 100 mg Folic Acid (Folic Acid) 1 mg PO BID [facility] Last Admin: 04/16/18 09:55 Dose: 1 mg Losartan Potassium (Cozaar) 100 mg PO DAILY [facility] Last Admin: 04/15/18 10:02 Dose: Not Given Metoprolol Succinate (Toprol Xl) 50 mg PO DAILY [facility] Last Admin: 04/16/18 09:55 Dose: 50 mg Pantoprazole Sodium (Protonix Ec Tab) 40 mg PO DAILY [facility] Last Admin: 04/16/18 09:55 Dose: 40 mg Tamsulosin HCl (Flomax) 0.4 mg PO HS [facility] Last Admin: 04/15/18 22:23 Dose: 0.4 mg - Labs Labs: 04/16/18 09:00 04/16/18 08:40 PT 11.2 SECONDS (9.4-12.5) 04/15/18 05:08 INR 0.99 04/15/18 05:08 APTT 29.6 Seconds (26.9-38.3) 04/15/18 05:08 - Constitutional Appears: No Acute Distress - Head Exam Head Exam: ATRAUMATIC, NORMOCEPHALIC - Eye Exam Eye Exam: EOMI - ENT Exam ENT Exam: Mucous Membranes Moist - Respiratory Exam Respiratory Exam: Clear to Ausculation Bilateral. absent: Rales, Wheezes - Cardiovascular Exam Cardiovascular Exam: REGULAR RHYTHM, +S1, +S2 - GI/Abdominal Exam GI & Abdominal Exam: Soft. absent: Distended, Tenderness - Extremities Exam Extremities Exam: absent: Calf Tenderness, Pedal Edema - Neurological Exam Neurological Exam: Alert, Awake, Oriented x3 - Psychiatric Exam Psychiatric exam: Normal Mood - Skin Skin Exam: Dry, Warm Assessment and Plan - Assessment and Plan (Free Text) Assessment: 1. R sided weakness and parathesia r/o CVA vs TIA 2. CAD with stents 3 Hypertension 4. Hyperlipidemia 5. Celiac disease Patient still with right-sided symptoms. Physical therapy was ordered and recommended a brain MRI as the patient was off balance on the right side. MRI ordered we will follow-up results. Continue with aspirin 81mg for history of CAD, and CVA. Follow-up with echocardiogram. Carotid artery ultrasound was neg. Follow-up with neurology consult and recommendations. Continue with Lipitor for his hyperlipidemia. Continue with metoprolol and losartan for his hypertension. Continue with physical therapy. Continue with heart healthy and gluten-free diet. Continue with Protonix. Continue to monitor. Case and plan was reviewed and discussed with Dr. Klein. <Lennox Klein - Last Filed: 04/16/18 19:43> Objective - Vital Signs/Intake and Output Vital Signs (last 24 hours): Temp Pulse Resp BP Pulse Ox 98.7 F 57 L 18 164/64 H 99 04/16/18 18:00 04/16/18 18:00 04/16/18 18:00 04/16/18 18:00 04/15/18 16:00 Intake and Output: 04/16/18 04/17/18 18:59 06:59 Intake Total 720 Output Total 800 Balance -80 - Medications Medications: Current Medications Alprazolam (Xanax) 0.25 mg PO BID PRN PRN Reason: Anxiety Stop: 04/23/18 10:50 Last Admin: 04/16/18 11:47 Dose: 0.25 mg Amlodipine Besylate (Norvasc) 10 mg PO DAILY [facility] Last Admin: 04/16/18 09:55 Dose: 10 mg Aspirin (Ecotrin) 81 mg PO DAILY [facility] Last Admin: 04/16/18 09:55 Dose: 81 mg Atorvastatin Calcium (Lipitor) 20 mg PO QOTHERDAY [facility] Last Admin: 04/15/18 10:04 Dose: Not Given Clopidogrel Bisulfate (Plavix) 75 mg PO DAILY [facility] Last Admin: 04/16/18 14:51 Dose: 75 mg Docusate Sodium (Colace) 100 mg PO DAILY [facility] Last Admin: 04/16/18 09:55 Dose: 100 mg Folic Acid (Folic Acid) 1 mg PO BID [facility] Last Admin: 04/16/18 17:33 Dose: 1 mg Losartan Potassium (Cozaar) 100 mg PO DAILY [facility] Last Admin: 04/16/18 09:55 Dose: 100 mg Metoprolol Succinate (Toprol Xl) 50 mg PO DAILY [facility] Last Admin: 04/16/18 09:55 Dose: 50 mg Pantoprazole Sodium (Protonix Ec Tab) 40 mg PO DAILY [facility] Last Admin: 04/16/18 09:55 Dose: 40 mg Tamsulosin HCl (Flomax) 0.4 mg PO HS [facility] Last Admin: 04/15/18 22:23 Dose: 0.4 mg - Labs Labs: 04/16/18 09:00 04/16/18 08:40 PT 11.2 SECONDS (9.4-12.5) 04/15/18 05:08 INR 0.99 04/15/18 05:08 APTT 29.6 Seconds (26.9-38.3) 04/15/18 05:08 Assessment and Plan - Assessment and Plan (Free Text) Assessment: Pt seen and examined by me. I have reviewed the note of the certified medical assistant and I agree with it. I have discussed the assessment and plan with the resident. I have reviewed the medications and the last labs. Pt continues to have R leg paratheisa. will get MRI to evaluate of the head. He has CAD and is on ASA. He i s on Lsartan for his HTN. He will continue with Lipitor for his dyslipidemia. He has an echo that is pending. He has not pain and no focal weakness. He is on a gluten free diet.
--- NOTE | 2018-04-16 11:26 | CP.PCM.APN ---
Subjective - Date & Time of Evaluation Date of Evaluation: 04/16/18 Time of Evaluation: 10:00 - Subjective Subjective: pt seen and examined at bedside, sitting in chair with at his side Pt c/o right sided weakness and anxiety requesting xanax he takes at home Review of Systems - Review of Systems All systems: reviewed and no additional remarkable complaints except - Constitutional Constitutional: Weakness Additional comments: right sided Objective - Vital Signs/Intake and Output Vital Signs (last 24 hours): Temp Pulse Resp BP Pulse Ox 97.6 F 77 19 160/70 H 99 04/16/18 06:00 04/16/18 09:55 04/16/18 06:00 04/16/18 09:55 04/15/18 16:00 Intake and Output: 04/16/18 04/16/18 06:59 18:59 Intake Total 840 Output Total 650 Balance 190 - Medications Medications: Current Medications Alprazolam (Xanax) 0.25 mg PO BID PRN PRN Reason: Anxiety Stop: 04/23/18 10:50 Amlodipine Besylate (Norvasc) 10 mg PO DAILY [facility] Last Admin: 04/16/18 09:55 Dose: 10 mg Aspirin (Ecotrin) 81 mg PO DAILY [facility] Last Admin: 04/16/18 09:55 Dose: 81 mg Atorvastatin Calcium (Lipitor) 20 mg PO QOTHERDAY [facility] Last Admin: 04/15/18 10:04 Dose: Not Given Docusate Sodium (Colace) 100 mg PO DAILY [facility] Last Admin: 04/16/18 09:55 Dose: 100 mg Folic Acid (Folic Acid) 1 mg PO BID [facility] Last Admin: 04/16/18 09:55 Dose: 1 mg Losartan Potassium (Cozaar) 100 mg PO DAILY [facility] Last Admin: 04/15/18 10:02 Dose: Not Given Metoprolol Succinate (Toprol Xl) 50 mg PO DAILY [facility] Last Admin: 04/16/18 09:55 Dose: 50 mg Pantoprazole Sodium (Protonix Ec Tab) 40 mg PO DAILY [facility] Last Admin: 04/16/18 09:55 Dose: 40 mg Tamsulosin HCl (Flomax) 0.4 mg PO HS [facility] Last Admin: 04/15/18 22:23 Dose: 0.4 mg - Labs Labs: 04/16/18 09:00 02/12/19 08:40 PT 11.2 SECONDS (9.4-12.5) 04/15/18 05:08 INR 0.99 04/15/18 05:08 APTT 29.6 Seconds (26.9-38.3) 04/15/18 05:08 - Constitutional Appears: Non-toxic, No Acute Distress - Eye Exam Pupil Exam: PERRL - ENT Exam ENT Exam: Mucous Membranes Moist - Respiratory Exam Respiratory Exam: NORMAL BREATHING PATTERN - Cardiovascular Exam Cardiovascular Exam: REGULAR RHYTHM, +S1, +S2 - GI/Abdominal Exam GI & Abdominal Exam: Soft, Normal Bowel Sounds - Neurological Exam Neurological Exam: Alert, Awake Additional comments: pt weaker on right side than left - Skin Skin Exam: Dry, Intact Assessment and Plan - Assessment and Plan (Free Text) Plan: 82 yr old white male with pmh sig for left cva, htn, hld, celiac disease, who presented to the ED after sudden onset of right sided weakness. pt is now being evaluated by neurologist with workup in progress. per discussion with POsman and resident, pt unsafe for dc home, will order MRI to assess for ? 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
--- NOTE | 2018-04-16 15:10 | MRI ---
Date of service: 04/16/2018 PROCEDURE: MRI BRAIN WITHOUT CONTRAST HISTORY: r/o cva COMPARISON: None available. TECHNIQUE: Multiplanar, multisequence MR images of the brain were obtained without intravenous contrast enhancement. FINDINGS: HEMORRHAGE: None DWI: There is a small acute infarct in the left side of the antonio. This is seen on image 7 series 3 BRAIN PARENCHYMA: Moderate atrophy. Chronic microvascular changes are seen in the deep white matter VENTRICLES: Unremarkable. No hydrocephalus. CRANIUM: Unremarkable. ORBITS: Grossly unremarkable. PARANASAL SINUSES/MASTOIDS: Clear VASCULAR SYSTEM: Skull base flow voids intact. OTHER FINDINGS: None. IMPRESSION: There is a small acute infarct in the left side of the antonio.
--- NOTE | 2018-04-16 15:58 | CON ---
DATE: 04/16/2018 CHIEF COMPLAINT: Right-sided weakness and paraesthesia. SUBJECTIVE: He currently has some right-sided paraesthesia still on right side weakness of the right subtle pronator drift on the right upper and lower extremity. He had underwent MRI of the brain, results pending, but did preliminary read by me showed an acute left pontomedullary junction acute infarct which is likely secondary to diffuse atherosclerotic disease. Carotid Doppler showed 20% and 39% possible ICA stenosis. He was on aspirin 81 prior to his CVA, we will recommend to be on dual antiplatelet therapy. PAST MEDICAL HISTORY: History of severe residual left-sided facial droop, coronary artery disease status post stent, hypertension, dyslipidemia, celiac disease. FAMILY HISTORY: Noncontributory. ALLERGIES: NO KNOWN DRUG ALLERGIES. SOCIAL HISTORY: No illicit drug, smoking or EtOH abuse. REVIEW OF SYSTEMS: A 14-point review of system is negative except as per HPI. MEDICATIONS: Reviewed by nurse reconciliation sheet. LABORATORY DATA: Sodium 138, potassium 4.6, chloride 107, carbon dioxide 25, BUN 23, creatinine 1.3 and random glucose 107. PHYSICAL EXAMINATION: GENERAL: The patient is seen up in bed in no acute distress. HEENT: Head is atraumatic and normocephalic. PERRLA. Extraocular muscles intact. NECK: Supple. No JVD. No adenopathy noted. LUNGS: Clear to auscultation. No adventitious sounds. HEART: S1 and S2, normal rate and rhythm. No murmur, rubs, or gallops. ABDOMEN: Soft and nontender. Normoactive bowel sounds present. EXTREMITIES: No clubbing and no cyanosis. Peripheral pulses are 2+ bilaterally. NEUROLOGIC: The patient is alert, oriented to person, place, month and year. Speech is fluent without any errors. Cranial nerves II through XII are intact. Has residual left facial droop from prior CVA. Otherwise, cranial nerves II through XII are intact. Motor exam: Has a right-sided upper and lower extremity pronator drift and has right 5/-5 right side weakness when compared to left, left side intact. Sensory: Decreased light touch and pinprick, proprioception and vibration are intact. DTRs are 2+ throughout. Coordination: [id number] is intact. No dysmetria noted. Romberg negative. Gait is normal. VITAL SIGNS: Blood pressure 160/70, respiratory rate 19, oxygen saturation of 98% on room air and pulse rate of 64. IMPRESSION AND PLAN: Right side weakness and numbness, secondary to left pontomedullary junction with acute infarct on the left, secondary to diffuse atherosclerotic disease. At this time, we recommend; 1. Aspirin 81 mg, initially we will add Plavix 75 mg and atorvastatin 40 mg for stroke prevention. 2. PT/OT evaluation possibly recommend subacute rehab/acute rehab for right side weakness. 3. Keep systolic blood pressure between 120s-130s and diastolic in 70s-80s. 4. Continue current and present medical management and echocardiogram. Luis Ortega MD
[2018-04-16 18:40] VITALS: RESP 18
[2018-04-17 07:02] LABS: BASO # 0.01 K/mm3 (0.0-2.0); BASO % 0.1 % (0.0-3.0); EOS # 0.1 (0.0-0.7); EOS % 1.5 % (1.5-5.0); HEMOGLOBIN 15.5 g/dL (14.0-18.0); LYMPH # 3.2 (1.2-3.4); MEAN CELL VOLUME 87.8 fl (80.0-105.0); MEAN CORPUSCULAR HEMOGLOBIN 28.3 pg (25.0-35.0); MEAN CORPUSCULAR HGB CONC 32.2 g/dl (31.0-37.0); MEAN PLATELET VOLUME 10.3 fl (7.0-11.0); MONO # 0.9 (0.1-0.6); MONO % 10.3 % (1.0-6.0); RBC 5.48 10^6/uL (3.5-6.1); RED CELL DISTRIBUTION WIDTH 14.4 % (11.5-14.5); WHITE BLOOD COUNT 9.2 10^3/uL (4.5-11.0)
[2018-04-17 07:57] LABS: ALB/GLOB RATIO 1.4 (1.1-1.8); ALBUMIN 3.7 g/dL (3.0-4.8)
[2018-04-17] MEDS: Metoprolol Succinate 50 mg XL Tab PO SCH (11:45)
[2018-04-17] MEDS: Pantoprazole 40 mg EC Tab PO SCH (11:45)
[2018-04-17 12:42] VITALS: BP 133/64; PULSE 59; TEMP 97.6
--- NOTE | 2018-04-17 14:42 | CP.PCM.DIS ---
Provider - Provider Date of Admission: 04/16/18 14:44 Attending physician: Lennox Klein MD Primary care physician: Kirill Joshua MD Consults: 04/15/18 06:35 Physician Consult Stat Comment: Consulting Provider: Luis Ortega Consulting Physician: Luis Ortega Reason for Consult: Paresthesias/numbness/right Arm/Leg 04/15/18 16:53 Social Work Referral Routine Comment: d/c plan Physician Instructions: Reason For Exam: eval Time Spent in preparation of Discharge (in minutes): 50 Hospital Course - Lab Results Lab Results: Most Recent Lab Values WBC 9.2 10^3/uL (4.5-11.0) 04/17/18 06:30 RBC 5.48 10^6/uL (3.5-6.1) 04/17/18 06:30 Hgb 15.5 g/dL (14.0-18.0) 04/17/18 06:30 Hct 48.1 % (42.0-52.0) 04/17/18 06:30 MCV 87.8 fl (80.0-105.0) 04/17/18 06:30 MCH 28.3 pg (25.0-35.0) 04/17/18 06:30 MCHC 32.2 g/dl (31.0-37.0) 04/17/18 06:30 RDW 14.4 % (11.5-14.5) 04/17/18 06:30 Plt Count 183 10^3/uL (120.0-450.0) 04/17/18 06:30 MPV 10.3 fl (7.0-11.0) 04/17/18 06:30 Neut % (Auto) 53.1 % (50.0-68.0) 04/17/18 06:30 Lymph % (Auto) 35.0 % (22.0-35.0) 04/17/18 06:30 [place] % (Auto) 10.3 % (1.0-6.0) H 04/17/18 06:30 Eos % (Auto) 1.5 % (1.5-5.0) 04/17/18 06:30 Baso % (Auto) 0.1 % (0.0-3.0) 04/17/18 06:30 Lymph # (Auto) 3.2 (1.2-3.4) 04/17/18 06:30 [place] # (Auto) 0.9 (0.1-0.6) H 04/17/18 06:30 Eos # (Auto) 0.1 (0.0-0.7) 04/17/18 06:30 Baso # (Auto) 0.01 K/mm3 (0.0-2.0) 04/17/18 06:30 Absolute Neuts (auto) 4.87 (1.4-6.5) 04/17/18 06:30 PT 11.2 SECONDS (9.4-12.5) 04/15/18 05:08 INR 0.99 04/15/18 05:08 APTT 29.6 Seconds (26.9-38.3) 04/15/18 05:08 Sodium 139 mmol/L (132-148) 04/17/18 06:30 Potassium 4.2 mmol/L (3.6-5.0) 04/17/18 06:30 Chloride 108 mmol/L (98-107) H 04/17/18 06:30 Carbon Dioxide 25 mmol/L (21-33) 04/17/18 06:30 Anion Gap 11 (10-20) 04/17/18 06:30 BUN 23 mg/dL (7-21) H 04/17/18 06:30 Creatinine 1.4 mg/dl (0.8-1.5) 04/17/18 06:30 Est GFR ( Amer) 59 04/17/18 06:30 Est GFR (Non-Af Amer) 48 04/17/18 06:30 Random Glucose 106 mg/dL (70-110) 04/17/18 06:30 Hemoglobin A1c 6.2 % (4.2-6.5) 04/15/18 05:08 Calcium 9.0 mg/dL (8.4-10.5) 04/17/18 06:30 Total Bilirubin 0.7 mg/dL (0.2-1.3) 04/17/18 06:30 AST 29 U/L (17-59) 04/17/18 06:30 ALT 9 U/L (7-56) 04/17/18 06:30 Alkaline Phosphatase 92 U/L (38-126) 04/17/18 06:30 Troponin I < 0.01 ng/mL 04/15/18 05:08 Total Protein 6.3 g/dL (5.8-8.3) 04/17/18 06:30 Albumin 3.7 g/dL (3.0-4.8) 04/17/18 06:30 Globulin 2.7 gm/dL 04/17/18 06:30 Albumin/Globulin Ratio 1.4 (1.1-1.8) 04/17/18 06:30 Triglycerides 124 mg/dL (35-160) 04/15/18 05:08 Cholesterol 126 mg/dL (130-200) L 04/15/18 05:08 LDL Cholesterol Direct 74 mg/dL (0-129) 04/15/18 05:08 HDL Cholesterol 32 mg/dL (29-60) 04/15/18 05:08 - Hospital Course Hospital Course: 82-year-old male with past medical history of CVA (L sided residual facial droop) , CAD with stents, hypertension, hyperlipidemia, celiac disease presents complaining of weakness and paresthesias of his right side. In the ED basic lab work was performed. CT of the head was done and showed no intracranial abnormality. Patient was admitted to the telemetry floor for close observation. Carotid ultrasound was performed and was unremarkable. Echocardiography was performed as well. An MRI of the brain was performed which showed an acute infarct in the L side of the antonio. Neurology was consulted for recommendations, recommended aspirin, Plavix and Lipitor. Physical therapy evaluation recommended patient still has right-sided weakness and is off balance therefore patient would benefit from acute rehab. Today the patient has mild right-sided weakness that has improved from yesterday. He denies any other complaints at this time. 1. CVA w/ acute infarct in the L side of the antonio 2. CAD with stents 3 Hypertension 4. Hyperlipidemia 5. Celiac disease Discharge Exam - Head Exam Head Exam: ATRAUMATIC, NORMOCEPHALIC - Eye Exam Eye Exam: EOMI, PERRL - Respiratory Exam Respiratory Exam: Clear to PA & Lateral. absent: Wheezes - Cardiovascular Exam Cardiovascular Exam: REGULAR RHYTHM, RRR, +S1, +S2 - GI/Abdominal Exam GI & Abdominal Exam: Normal Bowel Sounds, Soft. absent: Tenderness - Extremities Exam Extremities exam: calf tenderness, pedal edema - Neurological Exam Neurological exam: Alert, Oriented x3 Additional comments: RUE and RLE 4/5 - Psychiatric Exam Psychiatric exam: Normal Mood - Skin Skin Exam: Dry, Warm Discharge Plan - Follow Up Plan Condition: IMPROVED Disposition: HOME/ ROUTINE Patient education suggested?: Yes Additional Instructions: Follow up with your PMD within 3 days Follow-up with neurology within 1 week If your symptoms continue please come back to the ED Referrals: Kirill Joshua MD [Primary Care Provider] - Alex Ortega MD [Staff Provider] -
--- NOTE | 2018-04-18 09:04 | CARD ---
APPROVED REPORT Date of service: 04/17/2018 EXAM: Two-dimensional and M-mode echocardiogram with Doppler and color Doppler. INDICATION CVA/TIA BUBBLE STUDY 2D DIMENSIONS Left Atrium (2D)3.8 (1.6-4.0cm)IVSd1.3 (0.7-1.1cm) LVDd3.5 (3.9-5.9cm)LVOT Diameter2.0 (1.8-2.4cm) PWd1.3 (0.7-1.1cm)LVDs2.4 (2.5-4.0cm) FS (%) 32.5 %LVEF (%)61.9 (>50%) M-Mode DIMENSIONS Aortic Root2.40 (2.2-3.7cm)Aortic Cusp Exc.0.60 (1.5-2.0cm) Aortic Valve AoV Peak Tyvuechr245.0cm/sAoV VTI41.2cmAO Peak GR.20mmHg LVOT Peak Azydtpvd955.0cm/sLVOT VTI27.80cmAO Mean GR.9mmHg KAUSHIK (VMAX)1.82ot7ITO (VTI)2.12cm2 Mitral Valve E/A ratio0.0 TDI E/Lateral E'0.0E/Medial E'0.0 Tricuspid Valve TR Peak [id number] [id number] Peak Gr.29mmHg [id number] LEFT VENTRICLE The left ventricle is normal size. There is mild concentric left ventricular hypertrophy. The left ventricular function is normal. The left ventricular ejection fraction is within the normal range. There is normal LV segmental wall motion. RIGHT VENTRICLE The right ventricle is normal size. The right ventricular systolic function is normal. ATRIA The left atrium is mildly dilated. The right atrium size is normal. The interatrial septum is intact with no evidence for an atrial septal defect. AORTIC VALVE The aortic valve is moderately calcified. No aortic regurgitation is present. There is mild to moderate valvular aortic stenosis. MITRAL VALVE Mitral annular calcification is mild. Mitral regurgitation is mild. TRICUSPID VALVE The tricuspid valve is normal in structure. There is mild tricuspid regurgitation. PULMONIC VALVE The pulmonary valve is normal in structure. GREAT VESSELS The aortic root is normal in size. The IVC is normal in size and collapses >50% with inspiration. PERICARDIAL EFFUSION There is no pleural effusion. There is no pericardial effusion. <Conclusion> Dilated LA. Normal LV size and systolic function. Miild concentric LVH. Mild to moderate . Mild MR and TR. Negative bubble study.
== END 2018-04-17 20:01 | DRG 66 ==
LOC: ED 04:32 → ERH 06:33 → 2RNO 13:14 → OBSVTOIN 04-16 14:44
PROVIDERS: ADMIT Internal Medicine Nephrology; ATTEND Internal Medicine Nephrology
DX: I63.9 Cerebral infarction, unspecified (principal); I69.392 Facial weakness following cerebral infarction; E78.5 Hyperlipidemia, unspecified; I10 Essential (primary) hypertension; I25.10 Atherosclerotic heart disease of native coronary artery without angina pectoris; K90.0 Celiac disease; I65.23 Occlusion and stenosis of bilateral carotid arteries; R29.700 NIHSS score 0; Z79.82 Long term (current) use of aspirin; Z95.5 Presence of coronary angioplasty implant and graft; Z79.899 Other long term (current) drug therapy

== ENCOUNTER 2018-05-10 09:25 | Emergency (ER) | payer MEDICARE, BC ==
[2018-05-10 09:37] VITALS: BMI 27.3
[2018-05-10 09:51] VITALS: RESP 18; TEMP 97.4
[2018-05-10 10:13] LABS: BASO # 0.02 K/mm3 (0.0-2.0); BASO % 0.2 % (0.0-3.0); EOS # 0.2 (0.0-0.7); EOS % 2.3 % (1.5-5.0); HEMOGLOBIN 14.1 g/dL (14.0-18.0); LYMPH # 2.8 (1.2-3.4); LYMPH % 33.7 % (22.0-35.0); MEAN CELL VOLUME 89.6 fl (80.0-105.0); MEAN CORPUSCULAR HEMOGLOBIN 28.7 pg (25.0-35.0); MEAN PLATELET VOLUME 9.2 fl (7.0-11.0); MONO # 0.8 (0.1-0.6); MONO % 9.1 % (1.0-6.0); RBC 4.92 10^6/uL (3.5-6.1); RED CELL DISTRIBUTION WIDTH 15.2 % (11.5-14.5); WHITE BLOOD COUNT 8.2 10^3/uL (4.5-11.0)
--- NOTE | 2018-05-10 10:14 | ED PDOC ---
Arrival/HPI - General Chief Complaint: High Blood Pressure Time Seen by Provider: 05/10/18 09:27 Historian: Patient, Spouse - History of Present Illness Narrative History of Present Illness (Text): 05/10/18 9:53 82 year old male, whose past medical history includes CVA (L sided residual facial droop) , CAD with stents, hypertension, hyperlipidemia, celiac disease, presents to the emergency department accompanied by spouse for evaluation of elevated blood pressure today. Patient reports his visiting nurse checked his blood pressure today which was 200/100 where his PMD was notified and told to go to the ER for evaluation. Patient denies any associated symptoms. He reports he saw Dr. Joshua yesterday and his blood pressure was within its normal range. Patient admits to a history of cough, but denies any fever, chills, chest pain, shortness of breath, nausea, vomiting, diarrhea, urinary symptoms, back pain, neck pain, headache, dizziness, or any other complaints. PMD: Dr. Joshua Time/Duration: Other (today) Symptom Onset: Gradual Symptom Course: Unchanged Activities at Onset: Light Context: Home Past Medical History - Provider Review Nursing Documentation Reviewed: Yes - Infectious Disease Hx of Infectious Diseases: None - Tetanus Immunization Tetanus Immunization: Unknown - Cardiac Hx Cardiac Disorders: Yes (CAD with stents) Hx Hypertension: Yes - Pulmonary Hx Respiratory Disorders: No - Neurological HX Cerebrovascular Accident: Yes (with L sided facial droop) - HEENT Hx HEENT Disorder: No - Endocrine/Metabolic Hx Endocrine Disorders: No - Hematological/Oncological Hx Blood Disorders: Yes Hx Cancer: Yes (basal cell removed from neck) - Integumentary Hx Dermatological Disorder: Yes Other/Comment: dry skin and dry thick toenails to feet - Musculoskeletal/Rheumatological Hx Musculoskeletal Disorders: No Hx Falls: No - Gastrointestinal Hx Gastrointestinal Disorders: Yes (diverticulosis, colon polyps removed) Other/Comment: celiac disease, endoscopy 06/05/18 dx celiac disease/gastric polyps/schatzki ring/hiatal hernia/healed esophageal ulcer - Genitourinary/Gynecological Hx Prostate Problems: Yes (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) - Psychiatric Hx Psychophysiologic Disorder: No Hx Emotional Abuse: No Hx Physical Abuse: No Hx Substance Use: No - Surgical History Hx Cardiac Catheterization: Yes (with stents x4) Hx Coronary Stent: Yes (x4) - Anesthesia Hx Anesthesia: Yes Hx Anesthesia Reactions: No Hx Malignant Hyperthermia: No - Suicidal Assessment Feels Threatened In Home Enviroment: No Family/Social History - Physician Review Nursing Documentation Reviewed: Yes Family/Social History: No Known Family HX Smoking Status: Never Smoked Hx Alcohol Use: No Hx Substance Use: No Allergies/Home Meds Allergies/Adverse Reactions: Allergies No Known Allergies Allergy (Verified 05/10/18 09:53) Home Medications: Home Meds Medication Instructions Recorded Confirmed Metoprolol Succinate 50 mg PO DAILY 08/23/11 05/10/18 Ferrous Gluconate [Fergon] 270 mg PO DAILY 12/15/16 05/10/18 Folic Acid 1 mg PO BID 12/15/16 05/10/18 Tamsulosin [Flomax] 0.4 mg PO HS 12/15/16 05/10/18 Aspirin [Ecotrin] 81 mg PO DAILY 03/07/17 05/10/18 Atorvastatin [Lipitor] 20 mg PO QOTHERDAY 03/07/17 05/10/18 Docusate Sodium [Stool Softener] 100 mg PO DAILY 03/07/17 05/10/18 Losartan Potassium [Cozaar] 100 mg PO DAILY 03/07/17 05/10/18 Multivit-Minerals/FA/Lycopene [One 1 tab PO DAILY 03/07/17 05/10/18 Daily For Men Tablet] amLODIPine [Norvasc] 10 mg PO QAM 04/15/18 05/10/18 Hydralazine HCl 25 mg PO TID 05/10/18 05/10/18 Ranitidine HCl [Acid Senior Cognos Developer 150] 150 mg PO BID 05/10/18 05/10/18 Terazosin [Hytrin] 2 mg PO HS 05/10/18 05/10/18 Review of Systems - Physician Review All systems were reviewed & negative as marked: Yes - Review of Systems Constitutional: absent: Fevers, Other (chills) Respiratory: SOB, Cough Cardiovascular: absent: Chest Pain Gastrointestinal: absent: Diarrhea, Nausea, Vomiting Genitourinary Male: absent: Dysuria, Frequency, Hematuria Musculoskeletal: absent: Back Pain, Neck Pain Neurological: absent: Headache, Dizziness Physical Exam - Physical Exam Narrative Physical Exam (Text): Gen: VS reviewed, alert, well developed, well nourished, nontoxic, mild distress. ENT: normal pharynx. Eye: EOMI, PERRL. Neck: no JVD, supple, no adenopathy. CV: regular rate, regular rhythm, no rubs, no murmur, no gallops, S1, S2, pulses equal and strong. Pulm: Rhonchi bilateral lung field. no distress, no wheeze, breath sounds equal, no rales. Abd: soft, nontender, no guarding, no rebound, no rigidity, normal bowel sounds. Ext: trace edema bilateral LE Skin: good color, no rash, no cyanosis. Psych: responds appropriately to questions, normal affect. Neuro: oriented x 3, CN2-12 intact grossly, motor intact, sensation intact. Vital Signs Reviewed: Yes Vital Signs Temp Pulse Resp BP Pulse Ox 05/10/18 09:37 97.4 F L 62 18 154/64 H 96 Temperature: Afebrile Blood Pressure: Hypertensive Pulse: Regular Respiratory Rate: Normal Medical Decision Making ED Course and Treatment: 05/10/18 09:26 Impression: 82 year old male sent in by Dr. Joshua for elevated blood pressure today (200/100) and also admits to history of cough. Plan: -- Labs -- Chest X-ray -- Reassess and disposition Prior Visits: Notes and results from previous visits were reviewed. Progress Notes: 05/10/18 12:12 re-eval of lung exam: there is no respi distress, no wheezing, coarse breath sounds auscultated previously have improved without intervention, will continue with neb tx and reassess. blood pressure remains stable at this time. patient reports he has had some upper respiratory congestion. 05/10/18 12:43 cxr clear, lung sounds normalized, blood pressure elevated but stable. patient will be dc home and will call pcp for close outpt follow up for blood pressure. - Lab Interpretations I have reviewed the lab results: Yes - RAD Interpretation Radiology Orders: 05/10/18 09:54 CXR [CHEST TWO VIEWS (PA/LAT)] [RAD] Stat Needle Maker: Radiologist - Scribe Statement The provider has reviewed the documentation as recorded by the Charleneibe Erica Redmond Provider Scribe Attestation: All medical record entries made by the Scribe were at my direction and personally dictated by me. I have reviewed the chart and agree that the record accurately reflects my personal performance of the history, physical exam, medical decision making, and the department course for this patient. I have also personally directed, reviewed, and agree with the discharge instructions and disposition. Disposition/Present on Arrival - Present on Arrival Any Indicators Present on Arrival: No History of DVT/PE: No History of Uncontrolled Diabetes: No Urinary Catheter: No History of Decub. Ulcer: No History Surgical Site Infection Following: None - Disposition Have Diagnosis and Disposition been Completed?: Yes Diagnosis: Hypertension Disposition: HOME/ ROUTINE Disposition Time: 12:44 Patient Plan: Discharge Condition: STABLE Discharge Instructions (ExitCare): High Blood Pressure in Adults Additional Instructions: follow up with your primary care doctor as soon as possible. Referrals: Kirill Joshua MD [Primary Care Provider] - Follow up with primary Forms: [facility]Voice (German)
[2018-05-10 10:27] LABS: ALB/GLOB RATIO 1.4 (1.1-1.8); CALCIUM 9.2 mg/dL (8.4-10.5)
--- NOTE | 2018-05-10 11:47 | RAD ---
Date of service: 05/10/2018 HISTORY: pneumonia COMPARISON: 04/15/2018 TECHNIQUE: Chest PA and lateral FINDINGS: LUNGS: No active pulmonary disease. PLEURA: No significant pleural effusion identified. No pneumothorax apparent. CARDIOVASCULAR: Aortic calcification Normal cardiac size. No pulmonary vascular congestion. OSSEOUS STRUCTURES: No significant abnormalities. VISUALIZED UPPER ABDOMEN: Normal. OTHER FINDINGS: None. IMPRESSION: No active disease.
[2018-05-10] MEDS ORDERED: Albuterol 0.083% Inhal Sol (2.5 mg/3 mL) UD INH STA (11:59)
[2018-05-10 13:17] VITALS: BP 171/83; PULSE 66; O2SAT 98
== END 2018-05-10 14:21 | disposition home or self-care (01) ==
LOC: ED 09:25
DX: I10 Essential (primary) hypertension (principal); E78.5 Hyperlipidemia, unspecified; I25.10 Atherosclerotic heart disease of native coronary artery without angina pectoris